=== PATIENT | male | born 1995 | race Two or more races ===

== ENCOUNTER 2020-12-19 08:00 | Outpatient (CLI) | payer OTHER | END 2020-12-19 08:30 | disposition home or self-care (01) | LOC: PPH VACUNA 08:00 | PROVIDERS: ATTEND Emergency Medicine Pediatric Emergency Medicine | DX: Z23 Encounter for immunization (principal) ==

== ENCOUNTER 2021-01-18 15:10 | Emergency (ER) | payer OTHER ==
[~2021-01-18] VITALS: Ht 185.4 cm; Wt 72.6 kg
[2021-01-18] MEDS ORDERED: PRILOSEC10 MG (15:40)
[2021-01-18] MEDS ORDERED: TOPROL XL25 M1 (15:41)
[2021-01-18] MEDS ORDERED: NORFLEX100MG PO (17:08)
[2021-01-18] MEDS ORDERED: DICLOFENAC SODI75 MG PO (17:08)
== END 2021-01-18 17:46 | disposition home or self-care (01) ==
LOC: ER 15:10
DX: M54.50 Low back pain, unspecified (principal); M62.838 Other muscle spasm